=== PATIENT | female | born 1995 | race Hispanic/Latino ===

== ENCOUNTER → 2017-02-12 | Day surgery (SDC) | payer OTHER ==
[~2017-02-12] VITALS: Ht 160 cm; Wt 66.2 kg
[~2017-02-12] MED LIST: DICLEGIS 10 MG-1 TCP; IBU-6600 MG PO; IBUPROFEN800 M1 PO; LEVSIN/SL0.125 MG SL; MOTRIN 600 MG600 MG PO; PREDNISONE 20MG20 MG PO; PROMETHAZINE25 M1 PO; PROMETHAZINE25 MG PR; ZOFRAN4 M1 PO
--- NOTE | 2017-02-17 14:26 | Operative Report ---
Operative/Inv Procedure Report Surgery Date: 02/12/17 Name of Procedure: Diagnostic laparoscopy Pre-Operative Diagnosis: Pelvic pain Post-Operative Diagnosis: Same Estimated Blood Loss: less than 50ml Surgeon/Can Operator: JYOTI MONTE MD Anesthesia: general endotracheal tube Operative/Procedure Note Note: Procedure note patient was taken the operating room placed on position after adequate anesthesia patient post dorsolithotomy position the vagina from dorsal fashion bladder was catheterized examination under anesthesia performed at this point CO2 tenaculum was placed on the Intralipid cervix gentle downward traction patient tolerated that well on at this point the Sotomayor had been placed all instruments were in the vagina surgeon regowned and gloved at the level the umbilicus stab incision was made in and the was insufflated possibly fully Z CO2 to liver edge dullness which point the Veress needle was removed a 10 mm trocar was inserted atraumatically at the umbilicus through that sheath a laparoscope placed under direct visualization a 5 mm port was placed 2 finger's of's pubis in the midline through that a grasper was placed all pictures were taken a maximum CO2 was removed from the abdomen incision at the umbilicus was oversewn using 0 skin was reapproximated 3-year-old interrupteds for both skin the Marcaine was injected underneath skin at the end the case counts correct the urine was clear the Calabrese cannula and the Sotomayor removed the patient was returned spine position she was awakened from anesthesia and transferred recovery room awake alert counts correct
== END ==
LOC: STS 02:31
DX: R10.2 Pelvic and perineal pain (principal); N85.8 Other specified noninflammatory disorders of uterus; F17.200 Nicotine dependence, unspecified, uncomplicated
CPT/HCPCS: 81025; J1050; J2250; J2405

== ENCOUNTER 2017-10-10 12:02 | Emergency (ER) | payer OTHER ==
[~2017-10-10] VITALS: Ht 160 cm; Wt 66.2 kg
[~2017-10-10 12:02] MED LIST changes: +KETOROLAC TROME10 M1 PO; +VICODIN 5-3001 EACH PO
[2017-10-10 13:26] LABS: ABSOLUTE BASOPHIL COUNT 0 /CUMM (0.0-0.2); ABSOLUTE EOSINOPHIL COUNT 0.2 /CUMM (0.0-0.7); ABSOLUTE GRANULOCYTE CT 5.9 /CUMM (1.4-6.5); ABSOLUTE LYMPH COUNT 1.8 /CUMM (1.2-3.4); ABSOLUTE MONOCYTE COUNT 0.6 /CUMM (0.10-0.60); BASOPHIL % 0.4 % (0.0-2.0); EOSINOPHIL % 2.9 % (0-5); GRANULOCYTE % 69.1 % (42.2-75.2); HEMATOCRIT 43.2 % (37-47); MEAN CORPUSCULAR HGB CONC 33.9 G/DL (33.0-37.0); MEAN CORPUSCULAR VOLUME 88.5 FL (81.0-99.0); MEAN PLATELET VOLUME 8.3 FL (7.4-10.4); PLATELET COUNT 228 /CUMM (130-400); RBC DISTRIBUTION WIDTH 13.5 % (11.5-14.5); RED BLOOD CELL CT 4.88 /CUMM (4.20-5.40); WHITE BLOOD CELL COUNT 8.5 /CUMM (4.8-10.8)
--- NOTE | 2017-10-10 14:08 | CT SCAN REPORT ---
EXAMINATION: CT HEAD WITHOUT CONTRAST CLINICAL INFORMATION: Syncope. Headaches. Blurry vision. COMPARISON: None TECHNIQUE: Contiguous axial imaging was performed from the skull base to vertex without intravenous administration of contrast. DLP: 560.13 mGy-cm FINDINGS: There is no evidence of acute intracranial hemorrhage or territorial infarction. No abnormal mass effect or midline shift is seen. Loya to white matter differentiation is well preserved. No extra-axial fluid collections are identified. The ventricles are normal in size. There is no abnormal attenuation within the brain parenchyma. The osseous structures and soft tissues are normal. The mastoid air cells and visualized portions of the paranasal sinuses are well aerated. There is a small amount of retained mucus in the right sphenoid sinus. IMPRESSION: No acute intracranial pathology.
[2017-10-10 14:09] VITALS: BP 124/95
--- NOTE | 2017-10-10 14:38 | ED GENERAL ADULT ---
History of Present Illness General Chief Complaint: General Adult Stated Complaint: PER PT C/O PROBLEMS WITH EYES; BLACKED OUT LAST PM Source: patient Exam Limitations: no limitations Vital Signs & Intake/Output Vital Signs & Intake/Output Vital Signs Date Time Temp Pulse Resp B/P B/P Pulse O2 O2 Flow FiO2 Mean Ox Delivery Rate 10/10 1409 98.1 79 18 124/95 99 Room Air 10/10 1208 98.1 100 18 125/79 95 Room Air Allergies Coded Allergies: NO KNOWN ALLERGIES (06/04/16) Reconcile Medications Butalb/Acetaminophen/Caffeine (Dbmekh-Okhhqlcb-Bqsl 50-325-40) 50 MG-325 MG-40 MG TABLET 1-2 TAB PO Q8 HEADACHE Hydrocodone/Acetaminophen (Vicodin 5-300 MG Tablet) 5 MG-300 MG TABLET 1 TAB PO BID PRN PAIN Ketorolac Tromethamine 10 MG TABLET 1 TAB PO TID PRN PAIN Triage Note: PT TO ED FOR SYNCOPE LAST NIGHT, PT STATING FOR THE PAST SEVERAL WEEKS SHE HAS BEEN "BLACKING OUT THEN I CAN'T HEAR AND THEN IT GETS BETTER". PT REPORTING LAST NIGHT SHE WENT OUT TO DINNER, HAD A LIANET, CAME HOME "MY LEGS FELT LIKE NOODLES AND I FELL FACE FIRST INTO THE TUB." Triage Nurses Notes Reviewed? yes Onset: Abrupt Duration: intermittent, months Timing: recent history Injury Environment: home No Modifying Factors: none : No Patient currently breastfeeds: No HPI: 22-year-old female comes in see emergency room with complaints of blacked out vision has been occurring intermittently for many months. Her most recent episode was last night and this past Thursday. She reports that she gets associated headaches with it. She reports that her vision just goes plaque bilaterally. She reports that last night she had passed out at home. She got headache with some blurry vision and went down on the ground. She had some chest pain at that time. She denies any chest pain currently. She is asymptomatic at the moment. Denies any fever chills vomiting. Nothing seems to make symptoms better or worse. Denies any associated symptoms. (Matt Sommer) Past History Travel History Traveled to [place] past 21 day No Medical History Any Pertinent Medical History? see below for history Neurological: NONE EENT: NONE Cardiovascular: NONE Respiratory: NONE Gastrointestinal: NONE Hepatic: NONE Renal: NONE Musculoskeletal: NONE Psychiatric: NONE Endocrine: NONE Blood Disorders: NONE Cancer(s): NONE VICE PRESIDENT OF CUSTOMER SERVICE/Reproductive: MENORRAGHIA ON DEPO SHOT Surgical History Surgical History: non-contributory, N Psychosocial History What is your primary language Martiniquais Tobacco Use: Current Daily Use Daily Tobacco Use Amount/Type: => 5 Cigarettes daily ETOH Use: occasional use Illicit Drug Use: denies illicit drug use Family History Hx Contributory? No (Matt Sommer) Review of Systems Review of Systems Constitutional: Reports: see HPI. EENTM: Reports: see HPI. Respiratory: Reports: see HPI. Cardiovascular: Reports: no symptoms. GI: Reports: no symptoms. Genitourinary: Reports: no symptoms. Musculoskeletal: Reports: no symptoms. Skin: Reports: no symptoms. Neurological/Psychological: Reports: see HPI. Hematologic/Endocrine: Reports: no symptoms. Immunologic/Allergic: Reports: no symptoms. All Other Systems: Reviewed and Negative (Matt Sommer) Physical Exam Physical Exam General Appearance: well developed/nourished, no apparent distress, alert Head: atraumatic, normal appearance Eyes: Bilateral: normal appearance, PERRL, EOMI. Ears, Nose, Throat: normal pharynx, normal ENT inspection, hearing grossly normal Neck: normal inspection, supple, full range of motion Respiratory: normal breath sounds, chest non-tender, no respiratory distress Cardiovascular: regular rate/rhythm Gastrointestinal: normal bowel sounds, soft Back: normal inspection Extremities: normal inspection, normal capillary refill, normal range of motion, no edema Neurologic/Psych: no motor/sensory deficits, awake, alert, oriented x 3, normal gait, normal mood/affect, machine packager II-XII nml as tested Skin: intact, normal color Core Measures ACS in differential dx? No CVA/TIA Diagnosis: No Sepsis Present: No Sepsis Focused Exam Completed? No (Matt Sommer) Progress Differential Diagnoses I considered the following diagnoses in my evaluation of the patient: Migraine headache, cranial bleed, cluster headache, chronic arrhythmia, pulmonary embolism, Plan of Care: Orders Procedure Date/time Status Add-on Test (ER Only) 10/10 1317 Active D-DIMER 10/10 1300 Complete Telemetry/Extraction Operator 10/10 1250 Active URINE DRUGS OF ABUSE 10/10 1250 Complete TROPONIN LEVEL 10/10 1250 Complete HUMAN BETA HCG SCREEN 10/10 1250 Complete COMPREHENSIVE METABOLIC PANEL 10/10 1250 Complete CBC WITHOUT DIFFERENTIAL 10/10 1250 Complete EKG 10/10 1210 Active Laboratory Tests 10/10/17 1301: Urine Opiates Screen < 100, Methadone Screen < 40, Barbiturate Screen < 60, Ur Phencyclidine Scrn < 6.00, Amphetamines Screen < 100, U Benzodiazepines Scrn < 85, Urine Cocaine Screen < 50, Urine Cannabis Screen > 80.00 H 10/10/17 1300: Anion Gap 11, Estimated GFR > 60, BUN/Creatinine Ratio 16.3, Glucose 93, Calcium 10.2, Total Bilirubin 0.6, AST 19, ALT 17, Alkaline Phosphatase 73, Troponin I < 0.01, Total Protein 8.0, Albumin 4.7, Globulin 3.3, Albumin/Globulin Ratio 1.4, Total Beta HCG NEGATIVE, D-Dimer High Sensitivty < 200, CBC w Diff NO MAN DIFF REQ, RBC 4.88, MCV 88.5, MCH 30.0, MCHC 33.9, RDW 13.5, MPV 8.3, Gran % 69.1, Lymphocytes % 20.7, Monocytes % 6.9, Eosinophils % 2.9, Basophils % 0.4, Absolute Granulocytes 5.9, Absolute Lymphocytes 1.8, Absolute Monocytes 0.6, Absolute Eosinophils 0.2, Absolute Basophils 0 Diagnostic Imaging: Viewed by Me: Radiology Read, CT Scan. Discussed w/RAD: Radiology Read, CT Scan. Radiology Impression: PATIENT: CRISTHIAN MAGANA PRESENT AGE: 22 PATIENT ACCOUNT NO: [id number] : 95 LOCATION: [facility] ORDERING PHYSICIAN: Matt PHELAN SERVICE DATE: 10/10/17 EXAM TYPE : RAD - XRY-CHEST XRAY, TWO VIEWS EXAMINATION: XR CHEST CLINICAL INFORMATION: Syncope. COMPARISON: None TECHNIQUE: 2 views of the chest were obtained. FINDINGS: No significant abnormality is noted involving the heart, lungs, mediastinum, bony thorax or soft tissues. IMPRESSION: Unremarkable examination. DICTATED BY: Jaelyn Trevino MD DATE/TIME DICTATED:10/10/171434 CHAIN OFFBEARER:JAMES DATE/TIME TRANSCRIBED:10/10/171434 CONFIDENTIAL, DO NOT COPY WITHOUT APPROPRIATE AUTHORIZATION. <Electronically signed in Other Vendor System> SIGNED BY: Jaelyn Trevino MD 10/10/17 1440, PATIENT: CRISTHIAN MAGANA PRESENT AGE: 22 PATIENT ACCOUNT NO: [id number] : 95 LOCATION: [facility] ORDERING PHYSICIAN: Matt PHELAN SERVICE DATE: 10/10/17 EXAM TYPE: CAT - CT HEAD WO IV CONTRAST EXAMINATION: CT HEAD WITHOUT CONTRAST CLINICAL INFORMATION: Syncope. Headaches. Blurry vision. COMPARISON: None TECHNIQUE: Contiguous axial imaging was performed from the skull base to vertex without intravenous administration of contrast. DLP: 560.13 mGy-cm FINDINGS: There is no evidence of acute intracranial hemorrhage or territorial infarction. No abnormal mass effect or midline shift is seen. Loya to white matter differentiation is well preserved. No extra-axial fluid collections are identified. The ventricles are normal in size. There is no abnormal attenuation within the brain parenchyma. The osseous structures and soft tissues are normal. The mastoid air cells and visualized portions of the paranasal sinuses are well aerated. There is a small amount of retained mucus in the right sphenoid sinus. IMPRESSION: No acute intracranial pathology. DICTATED BY: Jaelyn Trevino MD DATE/TIME DICTATED:10/10/171400 CHAIN OFFBEARER: JAMES DATE/TIME TRANSCRIBED:10/10/171400 CONFIDENTIAL, DO NOT COPY WITHOUT APPROPRIATE AUTHORIZATION. <Electronically signed in Other Vendor System> SIGNED BY: Jaelyn Trevino MD 10/10/17 1408, PATIENT: CRISTHIAN MAGANA PRESENT AGE: 22 PATIENT ACCOUNT NO: [id number] : 95 LOCATION: [facility] ORDERING PHYSICIAN: Matt PHELAN SERVICE DATE: 10/10/17 EXAM TYPE: RAD - XRY-CHEST XRAY, TWO VIEWS EXAMINATION: XR CHEST CLINICAL INFORMATION: Syncope. COMPARISON: None TECHNIQUE: 2 views of the chest were obtained. FINDINGS: No significant abnormality is noted involving the heart, lungs, mediastinum, bony thorax or soft tissues. IMPRESSION: Unremarkable examination. DICTATED BY: Jaelyn Trevino MD DATE/TIME DICTATED:10/10/171434 CHAIN OFFBEARER:JAMSE DATE/TIME TRANSCRIBED:03/10/18 / 1435 CONFIDENTIAL, DO NOT COPY WITHOUT APPROPRIATE AUTHORIZATION. <Electronically signed in Other Vendor System> SIGNED BY: Jaelyn Trevino MD 10/10/17 1440 Initial ED EKG: normal sinus rhythm, rate (85) (Fredrick PHELAN,Matt) Departure Departure Disposition: HOME OR SELF CARE Condition: Stable Clinical Impression Primary Impression: Frequent headaches Secondary Impressions: Blurred vision, Syncope Referrals: Jh SMALLWOOD,Gary Ramos Patient Has No Primary Care Dr (PCP/Family) Additional Instructions: Follow-up with your primary care doctor. Follow-up with neurologist provided. Return if any concerns worsening symptoms. Please go over all results of today's visit with your primary care doctor. Contact your primary care doctor to let them know you were here in the emergency room. There may be nonspecific findings which may not be related to your visit today here in the emergency room but may require further evaluation and chronic monitoring by your primary care doctor. If you had a laceration today the chance of foreign body always remains. You should follow-up with your primary care doctor for recheck in 3-5 days for a wound check. If you had an x-ray done there is a chance that a fracture could have been missed on initial read and you should follow-up with your primary care doctor for repeat x-rays if symptoms persist. If your blood pressure was elevated here in the emergency room please have rechecked by [facility] primary care doctor within the next 48. If you were prescribed a narcotic here in the emergency room or any type of controlled substances you're not allowed to drive while taking this medication or operate any type of heavy machinery. Narcotics can make you feel lightheaded dizziness nausea and can cause constipation. You may need to knot picker cloth a stool softener. Thank you for choosing [facility] emergency room. Please return to the emergency room immediately if you have any other concerns worsening of symptoms. Departure Forms: Customer Survey General Discharge Information Prescriptions: Current Visit Scripts Butalb/Acetaminophen/Caffeine (Ivjljt-Oypfzqmi-Qnle 50-325-40) 1-2 TAB PO Q8 #30 TAB Comments 10/10/2017 3:31:23 PM Patient clinically looks well. Patient is in no apparent distress. Neurologically intact. No chest pain here in the emergency room. Headaches and blurry vision has been intermittent for months. No acute findings. Follow-up with neurologist. (Matt Sommer) PA/GRINDING MACHINE OPERATOR Co-Sign Statement Statement: ED Attending supervision documentation- [] I saw and evaluated the patient. I have also reviewed all the pertinent lab results and diagnostic results. I agree with the findings and the plan of care as documented in the PA's/GRINDING MACHINE OPERATOR's documentation. [X] I have reviewed the ED Record and agree with the PA's/GRINDING MACHINE OPERATOR's documentation. [] Additions or exceptions (if any) to the PAs/GRINDING MACHINE OPERATOR's note and plan are summarized below: [] (Henrry SMALLWOOD,Cosme Perera) Critical Care Note Critical Care Note Critical Care Time: non-applicable (Matt Sommer)
[2017-10-10] MEDS ORDERED: BUTALB-ACETAMI1 EACH PO (15:32)
== END 2017-10-10 15:00 ==
LOC: ERH 12:02
PROVIDERS: Physician Assistant Medical
DX: R51 Headache (principal); H53.8 Other visual disturbances; R55 Syncope and collapse
CPT/HCPCS: 71046; 80307; 93005; 93010